=== PATIENT | male | born 1965 | race Caucasian/White ===

== ENCOUNTER 2016-06-13 06:52 | Emergency (ER) | payer MEDICARE ==
[2016-06-13 07:26] VITALS: BP 158/85
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
== END 2016-06-13 07:49 | disposition home or self-care (01) ==
LOC: ED 06:52
DX: L73.9 Follicular disorder, unspecified (principal); I10 Essential (primary) hypertension; I20.9 Angina pectoris, unspecified; R51 Headache; R42 Dizziness and giddiness
CPT/HCPCS: 99281

== ENCOUNTER 2017-05-24 08:20 | Emergency (ER) | payer MEDICARE ==
[2017-05-24 09:32] LABS: ABS Basophils 0 10^3/ul (0-0.2); ABS Eosinophils 0.1 10^3/ul (0-0.6); ABS Lymphocytes 1.2 10^3/ul (1.0-4.8); ABS Monocytes 0.4 10^3/ul (0-0.8); ABS Nucleated RBC 0 10^3/ul; Eosinophil % 1.4 % (0-6); Hematocrit 47 % (42-52); Hemoglobin 16.8 g/dl (14.0-18.0); Lymphocyte % 24.9 % (25-47); Mean Corpuscular HGB Conc 36 g/dl (31-36); Mean Corpuscular Hemoglobin 31 pg (27-31); Mean Corpuscular Volume 88 fL (80-94); Mean Platelet Volume 8.1 um3 (7.4-10.4); Nucleated Red Blood Cells % 0.1; Platelet Count 147 10^3/ul (150-450); Red Blood Count 5.37 10^6/ul (4.0-5.4); Red Cell Distribution Width 13 % (10.5-15); White Blood Count 4.7 10^3/ul (3.5-10.8)
[2017-05-24 10:02] LABS: Urine Appearance Clear; Urine Blood Negative (Negative); Urine Color Straw; Urine Ketones Negative (Negative); Urine Protein Negative (Negative); Urine Specific Gravity 1.004 (1.010-1.030); Urine Urobilinogen Negative (Negative)
[2017-05-24 10:10] LABS: EGFR Non-African American 76.7 (>60)
[2017-05-24] MEDS ORDERED: Iohexol 300* (CONTRAST) 10 ML SDV IV ONE (10:25)
--- NOTE | 2017-05-24 10:53 | RAD ---
CLINICAL HISTORY: Abdominal pain COMPARISON: None TECHNIQUE: Multiple contiguous axial CT scans were obtained of the abdomen and pelvis after the administration of intravenous contrast. Coronal and sagittal multiplanar reformations are submitted for review. Oral contrast was administered. Delayed images were obtained through the abdomen and pelvis. FINDINGS: LUNG BASES: The lung bases are clear. LIVER: There is a simple cyst of the right lobe of liver. BILE DUCTS: There is no intrahepatic or extrahepatic biliary dilatation. GALLBLADDER: The gallbladder is normal, without pericholecystic inflammatory change. PANCREAS: The pancreas is normal, without mass or ductal dilatation. SPLEEN: Normal in size and appearance. UPPER GI TRACT: Evaluation of the gastrointestinal tract is limited by incomplete gastric distention. The upper GI tract is unremarkable. SMALL BOWEL AND MESENTERY: The small bowel is normal in contour, course, and caliber. There is no obstruction or dilatation. COLON: The colon is normal in contour, course, caliber. There is no pericolonic inflammatory change. The appendix is not clearly visualized. There is inflammatory change of the right lower quadrant. ADRENALS: Normal bilaterally. KIDNEYS: The kidneys are normal in shape, size, contour, and axis. There is no hydronephrosis or nephrolithiasis. BLADDER: The bladder is smooth in contour. PELVIC ORGANS: The prostate gland is normal. The seminal vesicles are symmetric. AORTA: The aorta is normal. IVC: Unremarkable LYMPH NODES: There is no lymphadenopathy by size criteria. ABDOMINAL WALL: There is no evidence for abdominal wall hernia. BONES AND SOFT TISSUES: There are mild diffuse degenerative changes. OTHER: None IMPRESSION: NO ACUTE CT PATHOLOGY OF THE VISUALIZED ABDOMEN OR PELVIS.
[2017-05-24 13:32] VITALS: BP 142/100
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
== END 2017-05-24 12:27 | disposition home or self-care (01) ==
LOC: ED 08:20
DX: R10.13 Epigastric pain (principal); R11.0 Nausea; R14.2 Eructation; I20.9 Angina pectoris, unspecified; I10 Essential (primary) hypertension; F43.10 Post-traumatic stress disorder, unspecified; F31.9 Bipolar disorder, unspecified; Z87.891 Personal history of nicotine dependence
CPT/HCPCS: 36415; 74177; 80053; 81003; 82150; 82550; 83690; 84484; 85025; 86140; 93005; 99285; Q9967

== ENCOUNTER 2019-05-06 02:57 | Emergency (ER) | payer MEDICARE ==
[2019-05-06] MEDS ORDERED: LORazepam INJ* 2 MG/ML 1 ML VIAL ONE (03:06)
[2019-05-06 03:18] LABS: Urine Appearance Cloudy; Urine Bilirubin Negative (Negative); Urine Blood Negative (Negative); Urine Color Yellow; Urine Glucose Negative (Negative); Urine Ketones Trace (Negative); Urine Nitrite Negative (Negative); Urine Protein Negative (Negative); Urine Specific Gravity 1.015 (1.010-1.030); Urine Urobilinogen Negative (Negative)
[2019-05-06 03:22] LABS: ABS Basophils 0.1 10^3/ul (0-0.2); ABS Eosinophils 0.1 10^3/ul (0-0.6); ABS Lymphocytes 1.5 10^3/ul (1.0-4.8); ABS Monocytes 0.6 10^3/ul (0-0.8); ABS Neutrophils 4.6 10^3/ul (1.5-7.7); Eosinophil % 1.2 %; Hematocrit 43 % (42-52); Mean Corpuscular HGB Conc 35 g/dL (31-36); Mean Corpuscular Hemoglobin 32 pg (27-31); Mean Corpuscular Volume 92 fL (80-94); Mean Platelet Volume 7.9 fL (7.4-10.4); Platelet Count 174 10^3/uL (150-450); Red Blood Count 4.65 10^6 /uL (4.18-5.48); Red Cell Distribution Width 13 % (10-15); White Blood Count 6.9 10^3/uL (3.5-10.8)
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
[2019-05-06 03:37] LABS: Urine Benzodiazepine Screen None Detected (None Detect); Urine Opiates Screen None Detected (None Detect)
[2019-05-06 03:38] LABS: ALT 30 U/L (7-52); AST 40 U/L (13-39); Albumin 4.8 g/dL (3.2-5.2); Alkaline Phosphatase 84 U/L (34-104); Anion Gap 18 mmol/L (2-11); BUN/Creatinine Ratio 16.8 (8-20); Blood Urea Nitrogen 21 mg/dL (6-24); CO2 Carbon Dioxide 18 mmol/L (22-32); Calcium 9.5 mg/dL (8.6-10.3); Chloride 101 mmol/L (101-111); EGFR African American 72.8 (>60); EGFR Non-African American 60.2 (>60); Globulin 2.4 g/dL (2-4); Glucose 114 mg/dL (70-100); Potassium 4.1 mmol/L (3.5-5.0); Sodium 137 mmol/L (135-145); Total Protein 7.2 g/dL (6.4-8.9)
[2019-05-06 04:33] LABS: Acetaminophen < 15 mcg/mL; Alcohol 179 mg/dL (<10); Salicylate < 2.50 mg/dL (<30)
[2019-05-06 04:48] LABS: TSH (Thyroid Stimulating Horm) 2.61 mcIU/mL (0.34-5.60)
--- NOTE | 2019-05-06 07:18 | ED ---
Progress - Progress Note Progress Note: Receiving sign-out from Dr. Sheets at shift change 0700 05/06/[address] Sheikh and Devendra from mental health team have evaluated the patient and determined he is safe for discharge as he is not in acute danger to himself or others. Plan for outpatient treatment. Patient agreeable with plan. Course/Dx - Course Course Of Treatment: Receiving sign-out from Dr. Sheets at shift change [address] Arrington from mental health team have evaluated the patient and determined he is safe for discharge as he is not in acute danger to himself or others. Plan for outpatient treatment. Patient agreeable with plan. - Diagnoses Provider Diagnoses: Bipolar disorder, Substance induced mood disorder - Provider Notifications Discussed Care Of Patient With: Artemio Sheikh - psychiatry Time Discussed With Above Provider: 14:15 Instructed by Provider To: Other - Dr. Arrington from mental health team have evaluated the patient and determined he is safe for discharge as he is not in acute danger to himself or others. Plan for outpatient treatment. Discharge ED - Sign-Out/Discharge Documenting (check all that apply): Patient Departure - discharge, Receiving Sign-Out Receiving patient FROM: Peter Sheets - pending MHE - Discharge Plan Condition: Stable Disposition: HOME Referrals: Eliu García MD [Primary Care Provider] - - Attestation Statements Document Initiated by Scribe: Yes Documenting Scribe: Leora Ortiz Provider For Whom Scribe is Documenting (Include Credential): Damian Schuster MD Scribe Attestation: Grzegorz Landaverde Natalie George, scribed for Damian Schuster MD on 05/06/19 at 1445. Status of Scribe Document: Ready Procedures - Sedation Patient Received Moderate/Deep Sedation with Procedure: No
[2019-05-06 14:43] VITALS: BP 154/88
== END 2019-05-06 14:42 | disposition home or self-care (01) ==
LOC: ED 02:57
DX: F31.9 Bipolar disorder, unspecified (principal); F19.94 Other psychoactive substance use, unspecified with psychoactive substance-induced mood disorder; I10 Essential (primary) hypertension; F43.10 Post-traumatic stress disorder, unspecified; Z87.891 Personal history of nicotine dependence
CPT/HCPCS: 36415; 80053; 80307; 80320; 80329; 81003; 84443; 85025; 99285; G0480; J2060